=== PATIENT | male | born 1980 | race Caucasian/White ===

== ENCOUNTER 2023-12-09 11:55 | Day surgery (SDC) | payer MEDICAID ==
[~2023-12-09] VITALS: Ht 172.7 cm; Wt 89.8 kg
[2023-12-09 13:40] VITALS: O2SAT 100
[2023-12-09] MEDS ORDERED: ACETAMINOPHEN I.V. 1000 MG 100 ML IV ONE (13:59)
[2023-12-09] MEDS ORDERED: HYDROmorphone 1 MG/ML INJ. CARTRIDGE IVP PRN ×2 (14:15)
[2023-12-09] MEDS ORDERED: METOCLOPRAMIDE HCL 10 MG/2 ML VIAL IVP PRN (14:15)
[2023-12-09] MEDS ORDERED: LR 1,000 ML IV SCH (14:15)
[2023-12-09] MEDS ORDERED: hydrALAZINE HCL 20 MG/ML VIAL IVP PRN (14:15)
[2023-12-09] MEDS ORDERED: MEPERIDINE HCL/PF 25 MG/ML DISP.SYRIN IVP PRN (14:15)
[2023-12-09] MEDS ORDERED: MIDAZOLAM HCL 2 MG/2 ML VIAL (VERSED) IVP PRN (14:15)
[2023-12-09] MEDS ORDERED: SUGAMMADEX SODIUM 200 MG/2 ML VIAL IV ONE (15:54)
[2023-12-09] MEDS ORDERED: EPINEPHrine HCL 1 MG/ML VIAL ONE (15:54)
[2023-12-09] MEDS ORDERED: LIDOCAINE 2%, 20 ML MDV ONE (15:54)
[2023-12-09] MEDS ORDERED: MIDAZOLAM HCL 5 MG/ML VIAL (VERSED) IV ONE (15:54)
[2023-12-09] MEDS ORDERED: PROPOFOL 200MG/ 20ML VIAL (DIPRIVAN) IV ONE (15:54)
[2023-12-09] MEDS ORDERED: WATER FOR IRRIGATION,STERILE 1,000 ML IRRIG.SOLN IR ONE (15:54)
[2023-12-09] MEDS ORDERED: ROCURONIUM BROMIDE 10 MG/ML (ZEMURON) ONE (15:54)
[2023-12-09] MEDS ORDERED: NS IRRIG SOLN 1000 ML IR ONE (15:54)
[2023-12-09] MEDS ORDERED: OXYMETAZOLINE HCL 0.05% NASAL SPRAY NS ONE (15:54)
[2023-12-09] MEDS ORDERED: MUPIROCIN 2% TOPICAL OINTMENT 22 GM ONE (15:54)
[2023-12-09] MEDS ORDERED: NS 1000 ML IV.SOLN IV ONE (15:54)
[2023-12-09] MEDS ORDERED: DEXAMETHASONE SOD PHOSPHATE 4 MG/ML VIAL ONE (15:54)
[2023-12-09] MEDS ORDERED: LIDOCAINE/EPI 1% 1:100000 20 ML VIAL ONE (15:54)
[2023-12-09] MEDS ORDERED: ONDANSETRON HCL 4 MG/2 ML VIAL ONE (15:54)
[2023-12-09] MEDS ORDERED: LR 1,000 ML IV.SOLN IV ONE (15:54)
[2023-12-09] MEDS ORDERED: fentaNYL CITRATE/PF 100 MCG/2 ML AMP ONE (15:54)
[2023-12-09] MEDS ORDERED: DESFLURANE 15 MIN GAS INH ONE (15:54)
[2023-12-09] MEDS ORDERED: LABETALOL HCL 20 MG/4 ML CARTRIDGE IVP ONE (16:23)
[2023-12-09] MEDS: LABETALOL 100 MG/ 20ML VIAL IVP PRN (18:36)
[2023-12-09 18:50] VITALS: BP_SYST 131; PULSE 94; RESP 20
== END 2023-12-09 18:45 | disposition home or self-care (01) ==
LOC: SDS 11:55 → SMU 11:56 → SDS 18:45
PROVIDERS: ATTEND Otolaryngology
DX: J34.89 Other specified disorders of nose and nasal sinuses (principal); D38.5 Neoplasm of uncertain behavior of other respiratory organs; G40.909 Epilepsy, unspecified, not intractable, without status epilepticus; J34.2 Deviated nasal septum; R22.0 Localized swelling, mass and lump, head; K21.9 Gastro-esophageal reflux disease without esophagitis; A74.9 Chlamydial infection, unspecified; R35.1 Nocturia
CPT/HCPCS: 30520; 88304; 30140; J3490; J1100; J0171; J2250; J2405; J2704; J3010; J7120; J7030; J0131; J2001